=== PATIENT | male | born 1975 | race Caucasian/White ===

== ENCOUNTER → 2017-08-19 15:04 | Outpatient (CLI) | payer MEDICAID, SELFPAY | PROVIDERS: PCP Nurse Practitioner Family; Visit Provider Nurse Practitioner Family | DX: G47.33 Obstructive sleep apnea (adult) (pediatric) (principal) | CPT/HCPCS: G0399 ==

== ENCOUNTER → 2018-06-02 06:29 | Outpatient (CLI) | payer MEDICAID, SELFPAY ==
--- NOTE | 2018-06-02 06:31 | NM_ITS ---
History and Indications: History of AK, hypertension, diabetes, tobacco use, family history, chest pain, shortness of breath and fatigue Procedure: Patient received a 0.4 of intravenous Lexiscan, resting heart rate was 93 bpm resting blood pressure 119/75, with Lexiscan maximum heart rate achieved was 117 bpm which is less than 85% of the maximum predicted heart rate and a blood pressure 124/69. With Lexiscan patient complained of shortness of breath. Electrocardiogram: Resting electrocardiogram showed sinus rhythm, with Lexiscan there is less than 1.[address] segment depression noted from the baseline EKG. The EKG portion of the Lexiscan Myoview is nondiagnostic. Cardiac stress and resting SPECT images: Cardiac stress and resting SPECT images were obtained using technetium 99 Myoview 31.1 mCi stress and 9.6 mCi at rest gated SPECT further analysis of segmental wall motion and calculation of the ejection fraction also done. Cardiac stress and the suspect images show reversible ischemia involving the posterobasal wall, computer derived ejection fraction is 54% with no regional wall motion abnormality, right ventricle is normal size and contractility. Conclusion: 1. The EKG portion of the Lexiscan Myoview is nondiagnostic. 2. Scintigraphic evidence of reversible ischemia involving the posterobasal wall, either derived ejection fraction is 54% with no regional wall motion abnormality, right ventricle is normal size and contractility. 3. Abnormal Lexiscan Myoview study.
--- NOTE | 2018-06-02 10:48 | HMH.ITSHM ---
Current Home Medications as stated by this patient Ivan Elizabeth or assistance representative. [norolog lisinopril pantoprazole pantoprazole sertraline fenofibrate]
== END ==
PROVIDERS: PCP Nurse Practitioner Family; Visit Provider Internal Medicine
DX: E11.8 Type 2 diabetes mellitus with unspecified complications (principal); I10 Essential (primary) hypertension; I20.9 Angina pectoris, unspecified; I73.9 Peripheral vascular disease, unspecified; R06.09 Other forms of dyspnea; F17.200 Nicotine dependence, unspecified, uncomplicated
CPT/HCPCS: 78452; 93017; A9502; J2785

== ENCOUNTER → 2018-08-08 19:56 | Outpatient (CLI) | payer MEDICAID, SELFPAY | PROVIDERS: PCP Nurse Practitioner Family; Visit Provider Urology | DX: G47.33 Obstructive sleep apnea (adult) (pediatric) (principal); R06.83 Snoring | CPT/HCPCS: 95810 ==

== ENCOUNTER 2018-10-24 15:00 | Outpatient (RCR) | payer MEDICAID, SELFPAY | END 2018-11-22 15:01 | disposition home or self-care (01) | LOC: PT 15:00 | PROVIDERS: Visit Provider Orthopaedic Surgery Adult Reconstructive Orthopaedic Surgery | DX: M75.102 Unspecified rotator cuff tear or rupture of left shoulder, not specified as traumatic (principal) | CPT/HCPCS: 97010; 97014; 97110; 97140; 97163; 97164; G0283 ==

== ENCOUNTER → 2019-01-23 13:42 | Outpatient (CLI) | payer MEDICAID, SELFPAY ==
--- NOTE | 2019-01-23 13:46 | CA_ITS ---
PROCEDURE: 2-D M-mode and color Doppler study INDICATIONS FOR THE TEST: Chest painX COPD Heart Murmur Tobacco SmokingX Palpitations Fatigue Syncope Edema Hypertension Diabetes Mellitus Rheumatic Fever SOB BLEVINS Obesity HyperlipidemiaX Family History HD Additional History PATIENT INFORMATION HEIGHT: 72 WEIGHT:198 GENDER: Male B/P:106/69 2-D/M-MODE INTERPRETATION: 2-D MEASUREMENTS OBSERVED VALUES IN CMS Right Ventricular Dimension (RVDd) 2.9 Interventricular Septum (Thickness)(IVsd) .9 Left Ventricular Internal Dimensions(LVIDd) 4.96 Left Ventricular Posterior Wall (Thickness)(LVPWd) .9 Aortic Root 3.4 Aortic Cusp Separation 2.1 Left Atrial Dimensions (LAD) 3.0 2D 1. Left atrium is normal size, left ventricle is normal size, there is no concentric left ventricular hypertrophy, visually estimated ejection fraction 55% with no regional wall motion abnormality. 2. The right atrium is normal size, left ventricle is mildly enlarged with normal contractility. 3. The aortic valve is minimally thickened and fibrosed. 4. The mitral and tricuspid valvular grossly normal. 5. The pulmonic valve is poorly visualized. 6. No significant pericardial effusion noted. DOPPLER INTERROGATION: Doppler interrogation of the aortic, mitral and tricuspid valvular presence of mild mitral and tricuspid regurgitation, tricuspid regurgitation jet velocity is inadequate for calculation of the right ventricular systolic pressure, diastolic parameters are within normal range. CONCLUSION: 1. Normal left ventricular size, preserved left ventricular systolic function, visually estimated ejection fraction 55% with no regional wall motion abnormality, diastolic parameters are within normal range. 2. Mild mitral and tricuspid regurgitation 3. No significant pericardial effusion noted.
== END ==
PROVIDERS: Visit Provider Internal Medicine
DX: R00.2 Palpitations (principal); I73.9 Peripheral vascular disease, unspecified; I74.09 Other arterial embolism and thrombosis of abdominal aorta; F17.200 Nicotine dependence, unspecified, uncomplicated
CPT/HCPCS: 93306

== ENCOUNTER → 2020-01-26 13:22 | Outpatient (CLI) | payer OTHER, MEDICAID, SELFPAY | PROVIDERS: PCP Specialist/Technologist Athletic Trainer; Visit Provider Nurse Practitioner Family | DX: G47.33 Obstructive sleep apnea (adult) (pediatric) (principal); I25.10 Atherosclerotic heart disease of native coronary artery without angina pectoris; I74.09 Other arterial embolism and thrombosis of abdominal aorta | CPT/HCPCS: 94762 ==

== ENCOUNTER → 2020-04-04 07:50 | Outpatient (CLI) | payer OTHER, MEDICAID, SELFPAY ==
--- NOTE | 2020-04-04 | CA_ITS ---
APPROVED REPORT Exam: Pharmacologic Technologist: Rosalie Colon, Ht: 6 ft 0 in Wt: 199 lbs BSA: 2.13 m2 HR: 70 bpm BP: 130/78 mmHg Rhythm: NSR,NORMAL Medical History Medical History: HTN, Hyperlipidemia, Diabetic ??? Insulin Medications: Lisinopril,,,,, Metoprolol,,,,, Asa,,,,, Hydrocodone,,,,, Pantoprazole,,,,, Atorvastatin,,,,, HCTZ,,,,, INSULIN,,,,, Diclofenac,,,,, DulOXETINE,,,,, Baclofen,,,,, Janumet,,,,, Allergies: NKA Stress Test Details Test: LEXISCAN HR Resting HR: 74 bpm Max Heart Rate (APMHR): 176 bpm Max HR Achieved: 117 bpm Target HR (85% APMHR): 149 bpm % of APMHR: 66 Recovery HR: 94 bpm BP Resting BP: 130.0/78.0 mmHg Max BP: 133.0/86.0 mmHg Recovery BP: 123.0/88.0 mmHg ECG Resting ECG: NSR,NORMAL Clinical Exercise duration: 04:06 min Highest Stage Achieved: Stress ECG Conclusion DURING INFUSION PATIENT HAD SOA AND MALAISE. NO CHEST PAIN. NO ARRHYTHMIAS/ECTOPY. NO SIGNIFICANT ST-T CHANGES. UNREMARKABLE LEXISCAN STRESS. MYOVIEW IMAGES REPORTED SEPARATELY. Electronically signed by : Giorgio Griffith, 04/04/2020 13:39:40
--- NOTE | 2020-04-04 07:52 | NM_ITS ---
APPROVED REPORT Exam: Nuclear Stress Test Indication: chest pain..short of breath Patient Location: Outpatient Stress Tech: Cristina Tangnkson [place] Tech:BHANU Vasquez RT(R)(N) Ht: 6 ft 0 in Wt: 199 lbs HR: 70 bpm BP: 130/78 mmHg BSA: 2.13 m2 History: chest pain..short of breath Procedure: Patient received a 0.4 mg of intravenous Lexiscan, resting heart rate 70 bpm, resting blood pressure 130/78 mmHg, with Lexiscan maximum heart rate achived was 111 bpm which is Less than 85 % of the maximum predicted heart rate and blood pressure was 125/84 mmHg. With Lexiscan, patient denied any complaint of chest pain. Electrocardiogram Resting electrocardiogram showed sinus rhythm, with Lexiscan there is less than 1.[address] segment depression noted from the baseline EKG. The EKG portion of the Lexiscan Myoview is nondiagnostic. Cardiac Stress and Resting SPECT Images: Cardiac Stress and Resting SPECT images were obtained using technetium 99m Myoview 32.4 mCi stress and 10.79 mCi at rest. Gated SPECT for analysis of segmental wall motion and calculation of the ejection fraction also done. Cardiac stress and rest SPECT images show uniform myocardial activity without segmental perfusion abnormality, computer derived ejection fraction is 51% with no regional wall motion abnormality, right ventricle is normal size and contractility. Conclusion: 1. The EKG portion of the Lexiscan Myoview is nondiagnostic. 2. No scintigraphic evidence of reversible ischemia seen, computer derived ejection fraction 51% with no regional wall motion abnormality, right ventricle is normal size and contractility. 3. Normal Lexiscan Myoview study. Electronically signed by : Giorgio Griffith, 04/04/2020 13:41:49
--- NOTE | 2020-04-04 08:03 | CA_ITS ---
APPROVED REPORT EXAM: Comprehensive 2D, Doppler, and color-flow Echocardiogram Television Reporter: Lilli Caraballo CRT Ht: 6 ft 0 in Wt: 199lbs BSA: 2.13 BP: 120/76 mmHg Indications: Chest Pain, Shortness of Breath, CAD, Hyperlipidemia, Hypertension/HDD, PAD, GERD, smoker 2D Dimensions LVOT 2.18 cm (M/F) 1.5-2.5 M-Mode Dimensions RVDd 2.38 cm (0.9-2.6) LVDd 4.76 cm (3.5-5.7) LVDs 2.78 cm (3.5-5.7) IVSd 1.11 cm (0.6-1.1) PWd 0.74 cm (0.6-1.1) EF (Teich) 72.50% FS 41.60% EDV (Teich) 105.40 mL ESV (Teich) 29.00 mL LV Diastology E/A Ratio 1.09 Mitral Valve MV A Velocity 64.00 (40-130 cm/s) Left Ventricle Left atrium is normal size, left ventricle is normal size, there is no concentric left ventricular hypertrophy, visually estimated ejection fraction 55% with no regional wall motion abnormality, diastolic parameters are within normal range. Right Ventricle Right atrium and right ventricular normal size and contractility. Aortic Valve Aortic valve is minimally thickened and fibrosed, there is no aortic stenosis or aortic insufficiency. Mitral Valve Mitral valve is grossly normal, there is mild mitral regurgitation. Tricuspid Valve Tricuspid valve is grossly normal, there is mild tricuspid regurgitation, tricuspid regurgitation jet velocity is inadequate for calculation of the right ventricular systolic pressure. Pulmonic Valve Pulmonic valve is poorly visualized. Great Vessels Aortic root is normal size. Pericardium No significant pericardial effusion noted. Conclusion 1. Normal left ventricular size, preserved left ventricular systolic function, visually estimated ejection fraction 55% with no regional wall motion abnormality, diastolic parameters are within normal range. 2. Mild mitral and tricuspid regurgitation. 3. No significant pericardial effusion noted. Electronically signed by : Giorgio Griffith, 04/05/2020 13:24:05
--- NOTE | 2020-04-04 13:34 | HMH.ITSHM ---
Current Home Medications as stated by this patient Ivan Elizabeth or student services representative. [] asa atorvastatin duloxetine lisinopril metoprolol trzodone metformin
== END ==
PROVIDERS: PCP Family Medicine; Visit Provider Urology
DX: R06.00 Dyspnea, unspecified (principal); I20.9 Angina pectoris, unspecified; I10 Essential (primary) hypertension; I73.9 Peripheral vascular disease, unspecified; F17.200 Nicotine dependence, unspecified, uncomplicated
CPT/HCPCS: 78452; 93017; 93306; A9502; J2785

== ENCOUNTER → 2020-06-11 11:43 | Outpatient (CLI) | payer MEDICAID, SELFPAY ==
--- NOTE | 2020-06-11 | XR_ITS ---
PROCEDURE: XR HIP RT 2-3V W/PELVIS CLINICAL INDICATION: BILATERAL HIP PAIN COMPARISON: CR XR HIP LT 2-3V W/PELVIS from 06/11/2020 FINDINGS: There are mild osteoarthritic changes of the hips. No fracture or dislocation evident. No lytic or blastic change. IMPRESSION: Minimal osteoarthritic change. Dictated by: Paul Stallworth MD 06/11/2020 14:45 Paul Stallworth MD in [place] 06/11/2020 14:45
== END ==
PROVIDERS: PCP Nurse Practitioner Family; Visit Provider Nurse Practitioner Family
DX: M25.552 Pain in left hip (principal); M25.551 Pain in right hip
CPT/HCPCS: 73502

== ENCOUNTER → 2021-01-21 12:22 | Outpatient (CLI) | payer MEDICAID, SELFPAY ==
--- NOTE | 2021-01-21 12:22 | NM_ITS ---
APPROVED REPORT Exam: Nuclear Stress Test Indication: CAD, H/O AL, HTN, DM, HYPERLIPIDEMIA, TOB USE, FM HX, C.P., SOB, PALPITATIONS, FATIGUE Patient Location: Outpatient Stress Tech: Cesilia Dior [place] Tech:Kely Garcia, ARRT, RT (R)(N) Ht: 6 ft 0 in Wt: 198 lbs HR: 69 bpm BP: 114/77 mmHg BSA: 2.12 m2 History: CAD, H/O AL, HTN, DM, HYPERLIPIDEMIA, TOB USE, FM HX, C.P., SOB, PALPITATIONS, FATIGUE Procedure: Patient received a 0.4 mg of intravenous Lexiscan, resting heart rate 69 bpm, resting blood pressure 114/77 mmHg, with Lexiscan maximum heart rate achived was 108 bpm which is % of the maximum predicted heart rate and blood pressure was 123/74 mmHg. With Lexiscan, patient denied any complaint of chest pain. Cardiac Stress and Resting SPECT Images: Cardiac Stress and Resting SPECT images were obtained using technetium 99m Myoview 32.8 mCi stress and 10.52 mCi at rest. Low Ejection fraction of 47% with global hypokinesia. No fixed or reversible defects. Conclusion: Low Ejection fraction of 47% with No fixed or reversible defects. Electronically signed by : Paul Stallworth MD 01/24/2021 14:09:27
--- NOTE | 2021-01-21 13:54 | HMH.ITSHM ---
Current Home Medications as stated by this patient Ivan Elizabeth or sales support representative. []TRAZODONE SITAGLIPTIN ASA PIOGLITAZONE ARMODAFINIL PANTOPRAZOLE METOPROLOL LISINOPRIL ISOSORBIDE INSULIN HYDROCODONE HCTZ GABAPENTIN FENOFIBRATE FAMOTIDINE ERTUGLIFLOZIN DULOXETINE DICLOFENAC BACLOFEN ATORVASTATIN
--- NOTE | 2021-01-21 14:12 | CA_ITS ---
APPROVED REPORT Exam: Pharmacologic Technologist: Cesilia Dior, Ht: 6 ft 0 in Wt: 191 lbs BSA: 2.09 m2 HR: 69 bpm BP: 114/77 mmHg Medical History Medications: Lisinopril,,,,, Trazadone,,,,, Gabapentin,,,,, Pantoprazole,,,,, HCTZ,,,,, Pioglitazone,,,,, Diclofenac,,,,, Famotidine,,,,, DulOXETINE,,,,, FeNOfibrate,,,,, Baclofen,,,,, Janumet,,,,, Stress Test Details Test: LEXISCAN HR Resting HR: 78 bpm Max Heart Rate (APMHR): 175.099064 bpm Max HR Achieved: 109 bpm Target HR (85% APMHR): 148.378784 bpm % of APMHR: 62.29 Recovery HR: 91 bpm BP Resting BP: 114/77 mmHg Max BP: 133/78 mmHg Recovery BP: 119.0/79.0 mmHg ECG Resting ECG: NSR, normal Clinical Exercise duration: 04:00 min Highest Stage Achieved: Stress ECG Conclusion Symptoms: SOA, mild malaise. No Cp. Arrhythmias/Ectopy: None. ST-T Changes: No significant changes. Conclusion: Unremarkable Lexiscan stress. Myoview images reported separately. Electronically signed by : Rayo Prajapati, 01/23/2021 09:22:12
== END ==
PROVIDERS: PCP Nurse Practitioner Family; Visit Provider Internal Medicine Cardiovascular Disease
DX: R07.9 Chest pain, unspecified (principal); I25.10 Atherosclerotic heart disease of native coronary artery without angina pectoris; E78.5 Hyperlipidemia, unspecified; K21.9 Gastro-esophageal reflux disease without esophagitis; F17.200 Nicotine dependence, unspecified, uncomplicated
CPT/HCPCS: 78452; 93017; A9502; J2785

== ENCOUNTER → 2022-12-04 10:48 | Outpatient (CLI) | payer MEDICARE, MEDICAID, SELFPAY ==
--- NOTE | 2022-12-04 10:54 | MR_ITS ---
FINAL REPORT CLINICAL HISTORY: CERVICAL RADICULOPATHY pain and tingling down bilateral arms FINDINGS: Multiplanar MR imaging of the cervical spine was performed without contrast. On the sagittal T2-weighted images, disc degeneration is seen at multiple levels. There is disc space narrowing at C5-6. There is no evidence of fracture. The vertebral alignment is normal. The cervical spinal cord has an unremarkable appearance without evidence of mass, edema or syrinx. The cervicomedullary junction is normal. C2-3: There is a small central disc protrusion and left uncovertebral osteophytes. There is moderate left neural foraminal narrowing. C3-4: An annular bulge is present with uncovertebral osteophytes. There is severe right and moderate left neural foraminal narrowing. C4-5: An annular bulge is present. There is a small central disc protrusion. Small uncovertebral osteophytes are present. There is no significant canal stenosis or neural foraminal narrowing. C5-6: There is a disc osteophyte complex. There is a left paracentral inferiorly extruded disc which indents the thecal sac. There is mild central canal stenosis with an AP diameter of the thecal sac of 7 mm. There is severe right and moderate left neural foraminal narrowing. C6-7: An annular bulge is present. There is no significant canal stenosis. There is mild left neural foraminal narrowing. C7-T1: There is no significant canal stenosis or neural foraminal narrowing. IMPRESSION: Multilevel degenerative disc disease most pronounced at C5-6 with a left paracentral inferiorly extruded disc at this level. Reviewed, Interpreted and Dictated by Adrián Crawford III, MD Transcribed by Shannon Galvan Authenticated and [facility]
== END ==
PROVIDERS: PCP Nurse Practitioner Family; Visit Provider Anesthesiology
DX: M54.12 Radiculopathy, cervical region (principal); M54.2 Cervicalgia
CPT/HCPCS: 72141; 76376

== ENCOUNTER → 2023-03-10 15:07 | Outpatient (CLI) | payer MEDICARE, MEDICAID, SELFPAY ==
--- NOTE | 2023-03-10 15:13 | CA_ITS ---
APPROVED REPORT EXAM: Comprehensive 2D, Doppler, and color-flow Echocardiogram Dental Associate: Nydia Martin, LYLY, RVS Ht: 6 ft 0 in Wt: 200lbs BSA: 2.13 BP: 129/76 mmHg Indications: Smoker, SOB, CP, ABN EKG, DM, HLD 2D Dimensions Aortic Root 3.36 cm LA Volume 29.10 mL Left Atrium 2.71 cm LA Volume Index 13.424642 mL/m2 (M/F) 16-34 LVOT 2.10 cm (M/F) 1.5-2.5 M-Mode Dimensions RVDd 2.32 cm (0.9-2.6) LA Diam 3.48 cm (1.9-4.0) LVDd 4.07 cm (3.5-5.7) Ao Diam 3.52 cm (2.0-3.7) LVDs 2.82 cm (3.5-5.7) IVSd 1.00 cm (0.6-1.1) PWd 0.96 cm (0.6-1.1) EF (Teich) 58.70% EPSs 0.72 cm FS 30.70% EDV (Teich) 72.90 mL TAPSE 1.37 (<1.7) ESV (Teich) 30.10 mL LV Diastology E Decel Time 240.00 (160-240 msec) E/A Ratio 1.21 MED E' 8.80 (< 7 cm/sec) MED A' 6.50 cm/s E'/MED E' Ratio 6.59 (>14) LAT E' 9.70 (<10 cm/sec) LAT A' 8.90 cm/s E/LAT E' Ratio 5.98 (>14) Aortic Valve LVOT Max 80.00 (70-110 cm/s) LVOT VTI 13.33 cm AoV Peak Storm. 93.00 (50-130 cm/s) AO Peak GR. 3.40 mmHg AO Mean GR. 1.70 (<5 mmHg) AO VTI 16.93 (18-25 cm) EFRAÍN (VTI) 2.73 (2.5-4.5 cm2) Mitral Valve MV A Velocity 48.00 (40-130 cm/s) E/A Ratio 1.21 MV Decel. Time 240.00 (160-240 ms) Pulmonary Valve PV Peak Velocity 82.00 (50-150 cm/s) Tricuspid Valve TR P. Velocity 194.00 cm/s RAP Estimate 10.00 mmHg RVSP 25.10 mmHg Left Ventricle The left ventricle is normal size. The left ventricular systolic function is normal. The left ventricular ejection fraction is within the normal range. There is normal left ventricular wall thickness. There is normal LV segmental wall motion. The left ventricular diastolic function is normal. LVEF is 55-60%. Right Ventricle The right ventricle is normal size. The right ventricular systolic function is normal. Atria The left atrium size is normal. The right atrium size is normal. Aortic Valve The aortic valve opens well. There is no aortic valvular stenosis. No aortic regurgitation is present. Mitral Valve The mitral valve is normal in structure. No evidence of mitral valve stenosis. There is no mitral valve regurgitation noted. Tricuspid Valve The tricuspid valve leaflets are thin and pliable. Trace tricuspid regurgitation. There is insufficient TR jet to estimate RVSP. Pulmonic Valve The pulmonary valve is normal in structure. Trace pulmonic regurgitation. Great Vessels The aortic root is normal in size. The ascending aorta is normal in size. IVC is normal in size and collapses >50% with inspiration. Pericardium There is no pericardial effusion. Other Information Study Quality: Adequate Conclusion Normal biventricular systolic function. No significant valvular disease. Electronically signed by : Leah Blanco, 03/10/2023 22:54:55
== END ==
LOC: RT 15:08
PROVIDERS: PCP Nurse Practitioner Family; Visit Provider Internal Medicine
DX: E11.9 Type 2 diabetes mellitus without complications (principal); E78.5 Hyperlipidemia, unspecified; F17.200 Nicotine dependence, unspecified, uncomplicated; I10 Essential (primary) hypertension; I25.118 Atherosclerotic heart disease of native coronary artery with other forms of angina pectoris; I73.9 Peripheral vascular disease, unspecified; K21.9 Gastro-esophageal reflux disease without esophagitis; R00.2 Palpitations; R06.00 Dyspnea, unspecified; R07.9 Chest pain, unspecified; R94.31 Abnormal electrocardiogram [ECG] [EKG]; Z79.4 Long term (current) use of insulin
CPT/HCPCS: 93306